=== PATIENT | female | born 1985 | race American Indian/Alaskan Native ===

== ENCOUNTER 2017-04-18 03:00 | Emergency (ER) | payer MEDICAID ==
[2017-04-18 04:29] LABS: Basophils % (Auto) 0.3 % (0.0-1.8); Hematocrit 36.8 % (30.3-42.9); Hemoglobin 11.5 gm/dl (10.1-14.3); Mean Corpuscular HGB Conc 31 % (30-34); Mean Corpuscular Hemoglobin 28 pg (28-32); Mean Corpuscular Volume 89 fl (79-97); Platelet Count 230 K/mm3 (140-440); Red Blood Count 4.11 M/mm3 (3.65-5.03); Red Cell Distribution Width 15.9 % (13.2-15.2); White Blood Count 13.2 K/mm3 (4.5-11.0)
[2017-04-18 04:36] LABS: Alanine Aminotransferase 26 units/L (7-56); Albumin 3.4 g/dL (3.9-5); Alkaline Phosphatase 85 units/L (35-129); Anion Gap 19 mmol/L; Blood Urea Nitrogen 4 mg/dL (7-17); Calcium 9.1 mg/dL (8.4-10.2); Carbon Dioxide 20 mmol/L (22-30); Chloride 100.9 mmol/L (98-107); Glucose 119 mg/dL (65-100); Lipase 24 units/L (13-60); Potassium 3.3 mmol/L (3.6-5.0); Sodium 137 mmol/L (137-145); Total Protein 6.9 g/dL (6.3-8.2)
[2017-04-18 05:12] LABS: Bilirubin,Urine NEG (Negative); Blood,Urine NEG (Negative); Ketones,Urine NEG (Negative); Leukocyte Esterase,Urine NEG (Negative); Mucus,Urine FEW /HPF; Nitrite,Urine NEG (Negative); Protein,Urine <15 mg/dL mg/dL (Negative); Urobilinogen,Urine < 2.0 mg/dL (<2.0)
--- NOTE | 2017-04-18 06:24 | Ultrasound Report ---
FINAL REPORT EXAM: US OB \T\gt; = 14 WEEKS FETUS, US OB TRANSVAGINAL HISTORY: 19 WEEKS PREG / ABD CRAMPS. TECHNIQUE: Directed transabdominal and transvaginal ultrasound examination of the pelvis was performed. No prior studies are available for comparison. FINDINGS: The patient reports her last menstrual period 12/05/2016, corresponding to current gestational age of 19 weeks, 1 day. There is a single intrauterine gestation, with current transverse position. The placenta is located anteriorly, unremarkable. The cervix measures 3.6 cm in length, within normal limits. The BPD measures 4.36 cm, corresponding to gestational age of 19 weeks, 1 day. The HC measures 16.40 cm, corresponding to 19 weeks, 1 day. The abdominal circumference measures 14.35 cm, corresponding to 19 weeks, 5 days. The femur length measures 3.24 cm, corresponding to 20 weeks, 1 day. There is an average ultrasound age of 19 weeks 4 days. cardiac activity is identified, with a heart rate of 143 beats per minute. There is limited visualization of the four-chamber heart, spine, abdominal cord insertion, and kidneys due to lie. The remainder of the anatomic survey is grossly within normal limits. IMPRESSION: Single live intrauterine gestation, with average ultrasound age of 19 weeks, 4 days.
--- NOTE | 2017-04-18 09:49 | Emergency Department Report ---
ED HPI - General Chief complaint: Abdominal Pain Stated complaint: CRAMPING 19 WEEKS Time Seen by Provider: 04/18/17 09:20 Source: patient Mode of arrival: Ambulatory Limitations: No Limitations - History of Present Illness Initial comments: 32-year-old female here with complaint of left-sided abdominal cramping. Patient noticed on Friday some left-sided abdominal cramping that radiated to her back. This is been intermittent for the last 2 days. No fevers chills nausea vomiting no other symptoms. Denies cramps constipation diarrhea. Patient is tolerating oral intake. She's had no vaginal bleeding or vaginal discharge MD Complaint: abdominal pain -: Sudden Location: pelvis Radiation: LLQ Severity: moderate Quality: sharp Consistency: intermittent (last approximate 5 minutes) Associated symptoms: abdominal pain. denies: nausea/vomiting, vaginal bleeding , vaginal discharge, headache, vision changes, malaise, dysparuenia, rash, seizure - Related Data Allergies Allergy/AdvReac Type Severity Reaction Status Date / Time No Known Allergies Allergy Verified 04/18/17 03:29 ED Review of Systems ROS: Stated complaint: CRAMPING 19 WEEKS Other details as noted in HPI Comment: All other systems reviewed and negative Constitutional: denies: chills, fever Eyes: denies: eye pain, eye discharge, vision change ENT: denies: ear pain, throat pain Respiratory: denies: cough, shortness of breath, wheezing Cardiovascular: denies: chest pain, palpitations Endocrine: no symptoms reported Gastrointestinal: abdominal pain. denies: nausea, diarrhea Genitourinary: denies: urgency, dysuria, frequency, hematuria, discharge, abnormal menses, dyspareunia Musculoskeletal: denies: back pain, joint swelling, arthralgia Skin: denies: rash, lesions Neurological: denies: headache, weakness, paresthesias Psychiatric: denies: anxiety, depression Hematological/Lymphatic: denies: easy bleeding, easy bruising ED Past Medical Hx - Past Medical History Previous Medical History?: No - Surgical History Past Surgical History?: Yes Additional Surgical History: KNEE - Family History Family history: no significant - Social History Smoking Status: Never Smoker Substance Use Type: None ED Physical Exam - General Limitations: No Limitations General appearance: alert, in no apparent distress - Head Head exam: Present: atraumatic, normocephalic - Eye Eye exam: Present: normal appearance. Absent: scleral icterus, conjunctival injection - ENT ENT exam: Present: mucous membranes moist - Neck Neck exam: Present: normal inspection. Absent: meningismus, lymphadenopathy - Respiratory Respiratory exam: Present: normal lung sounds bilaterally. Absent: respiratory distress, wheezes, rales - Cardiovascular Cardiovascular Exam: Present: regular rate, normal rhythm, normal heart sounds. Absent: systolic murmur, diastolic murmur, rubs, gallop - GI/Abdominal GI/Abdominal exam: Present: soft, tenderness (mild left lower quadrant tenderness), normal bowel sounds. Absent: distended, guarding, rebound - Extremities Exam Extremities exam: Present: normal inspection - Back Exam Back exam: Present: normal inspection - Neurological Exam Neurological exam: Present: alert, oriented X3 - Psychiatric Psychiatric exam: Present: normal affect, normal mood - Skin Skin exam: Present: warm, dry, intact, normal color. Absent: rash ED Course Vital Signs 04/18/17 04/18/17 04/18/17 03:29 10:30 11:00 Temperature 98.9 F Pulse Rate 94 H 82 96 H Respiratory 20 18 Rate Blood Pressure 130/80 Blood Pressure 112/64 96/61 [Right] O2 Sat by Pulse 100 Oximetry 04/18/17 12:20 Temperature Pulse Rate 103 H Respiratory 18 Rate Blood Pressure Blood Pressure 113/71 [Right] O2 Sat by Pulse Oximetry ED Medical Decision Making - Lab Data Result diagrams: 04/18/17 03:45 04/18/17 03:45 Laboratory Results - last 24 hr 04/18/17 04/18/17 04/18/17 03:45 03:45 03:45 WBC 13.2 H RBC 4.11 Hgb 11.5 Hct 36.8 MCV 89 MCH 28 MCHC 31 RDW 15.9 H Plt Count 230 Lymph % (Auto) 20.7 Armstrong % (Auto) 4.9 Eos % (Auto) 1.0 Baso % (Auto) 0.3 Lymph # 2.7 Armstrong # 0.6 Eos # 0.1 Baso # 0.0 Seg Neutrophils % 73.1 H Seg Neutrophils # 9.7 H Sodium 137 Potassium 3.3 L Chloride 100.9 Carbon Dioxide 20 L Anion Gap 19 BUN 4 L Creatinine 0.5 L Estimated GFR > 60 BUN/Creatinine Ratio 8.00 Glucose 119 H Calcium 9.1 Total Bilirubin 0.20 AST 17 ALT 26 Alkaline Phosphatase 85 Total Protein 6.9 Albumin 3.4 L Albumin/Globulin Ratio 1.0 Lipase 24 HCG, Quant 5934 H Urine Color Urine Turbidity Urine pH Ur Specific [place] Urine Protein Urine Glucose (UA) Urine Ketones Urine Blood Urine Nitrite Urine Bilirubin Urine Urobilinogen Ur Leukocyte Esterase Urine WBC (Auto) Urine RBC (Auto) U Epithel Cells (Auto) Urine Mucus 04/18/17 04:13 WBC RBC Hgb Hct MCV MCH MCHC RDW Plt Count Lymph % (Auto) Armstrong % (Auto) Eos % (Auto) Baso % (Auto) Lymph # Armstrong # Eos # Baso # Seg Neutrophils % Seg Neutrophils # Sodium Potassium Chloride Carbon Dioxide Anion Gap BUN Creatinine Estimated GFR BUN/Creatinine Ratio Glucose Calcium Total Bilirubin AST ALT Alkaline Phosphatase Total Protein Albumin Albumin/Globulin Ratio Lipase HCG, Quant Urine Color Yellow Urine Turbidity Clear Urine pH 5.0 Ur Specific [place] 1.025 Urine Protein <15 mg/dl Urine Glucose (UA) Neg Urine Ketones Neg Urine Blood Neg Urine Nitrite Neg Urine Bilirubin Neg Urine Urobilinogen < 2.0 Ur Leukocyte Esterase Neg Urine WBC (Auto) 1.0 Urine RBC (Auto) 3.0 U Epithel Cells (Auto) 2.0 Urine Mucus Few - Medical Decision Making 32-year-old here with complaint of left lower quadrant tenderness. Patient has intermittent pain lasting 5 minutes that radiates to her back. Initial workup plan labs UA and ultrasound to assess fetus. Patient states she is detecting movement. Initial labs shows elevated white blood count of 13 but otherwise labs are unremarkable. No evidence of UTI. Plan ultrasound and discuss with senior design engineering specialist/OB on-call. Ultrasound is unremarkable, live gestation at 19 weeks noted. Discussed case with OB on-call, Dr. Molina, comfortable with plan to discharge patient home. Discussed at length the patient and she is comfortable following up with them on Friday. Portions of this chart were dictated with dictation software. There may be dictation errors contained within this note. Critical care attestation.: If time is entered above; I have spent that time in minutes in the direct care of this critically ill patient, excluding procedure time. ED Disposition Clinical Impression: Abdominal pain affecting Disposition: DC- TO HOME OR SELFCARE Is pt being admited?: No Condition: Stable Instructions: Abdominal Pain (ED) Additional Instructions: Follow-up with your belt maker next week. You may take Tylenol for pain Referrals: PRIMARY CARE, [Primary Care Provider] - 3-5 Days
[2017-04-18 12:22] VITALS: BP 113/71
== END 2017-04-18 13:40 | disposition home or self-care (01) ==
LOC: ED 03:00
DX: O26.892 Other specified pregnancy related conditions, second trimester (principal); R10.32 Left lower quadrant pain; Z3A.19 19 weeks gestation of pregnancy
CPT/HCPCS: 36415; 76805; 76817; 80053; 81001; 83690; 84702; 85025

== ENCOUNTER 2017-09-06 01:50 | Outpatient (CLI) | payer MEDICAID ==
[2017-09-06 02:18] VITALS: BP 105/60
--- NOTE | 2017-09-06 03:14 | Ultrasound Report ---
FINAL REPORT PROCEDURE: US OB BPP WO NON-STRESS TECHNIQUE: Real-time limited sonographic examination was performed for evaluation of size, position, heartbeat, fluid volume for each fetus with image documentation (1 or more fetuses). CPT 38044 HISTORY: wellbeing COMPARISON: No prior studies are available for comparison. FINDINGS: Biophysical profile: breathing movements: 2. movements: 2. posterior and tone: 2. Qualitative amniotic fluid volume: 2. Total score: 8/8. heart rate 168 beats per minute.. IMPRESSION: Normal biophysical profile.
== END 2017-09-06 03:06 | disposition home or self-care (01) ==
LOC: TRG 01:50
PROVIDERS: ATTEND Obstetrics & Gynecology Gynecology
DX: O47.1 False labor at or after 37 completed weeks of gestation (principal); Z3A.39 39 weeks gestation of pregnancy
CPT/HCPCS: 59025; 76819

== ENCOUNTER 2017-09-16 01:54 | Inpatient (IN) | payer MEDICAID ==
[2017-09-16] MEDS ORDERED: VISTARIL PO ONE (02:51)
[2017-09-16] MEDS ORDERED: PITOCin/NS 20 UNIT/1000ML DRIP 20,000 MILLIUNITS/1,000 ML BAG IV ONE (03:03)
--- NOTE | 2017-09-16 03:25 | Procedure Note ---
OB Delivery Note - Delivery Date of Delivery: 09/16/17 Surgeon: KASIE STAUFFER Estimated blood loss: 200cc - Vaginal Delivery presentation: vertex Delivery position: OA Intrapartum events: precipitous labor- <3hr Delivery monitor: external FHT, external uterine Route of delivery: Delivery placenta: spontaneous Delivery cord: 3 umbilical vessels Episiotomy: none Delivery laceration: none Anesthesia: none Delivery comments: Precipitate delivery of female over intact perineum - Infant A at 1 minute: 8 at 5 minutes: 9 Infant Gender: Female (time of is 3 AM, infant weight 7 pounds 14 or 3558 g)
[2017-09-16] MEDS ORDERED: LANSINOH TP PRN (03:28)
[2017-09-16] MEDS ORDERED: ZOFRAN IV PRN (03:28)
[2017-09-16] MEDS ORDERED: DULCOLAX PR PRN (03:28)
[2017-09-16] MEDS ORDERED: MILK OF MAGNESIA PO PRN (03:28)
[2017-09-16] MEDS ORDERED: BENADRYL PO PRN (03:28)
[2017-09-16] MEDS ORDERED: PHENERGAN PO PRN (03:28)
[2017-09-16] MEDS ORDERED: TUCKS PAD TP PRN (03:28)
[2017-09-16] MEDS ORDERED: PHENERGAN PR PRN (03:28)
[2017-09-16] MEDS ORDERED: TYLENOL PO PRN (03:28)
--- NOTE | 2017-09-16 03:28 | History and Physical Report ---
History of Present Illness Date of examination: 09/16/17 Date of admission: 09/16/17 02:56 Chief complaint: Precipitous delivery History of present illness: 32-year-old @ 40+5 weeks in active labor, she is a [facility] patient. 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 denies: smoking, alcohol abuse, prescription drug abuse, IV drug use - Obstetrical History Expected Date of Delivery: 09/11/17 Actual Gestation: 40 Week(s) 5 Day(s) : 4 Para: 1 Medications and Allergies Allergies Allergy/AdvReac Type Severity Reaction Status Date / Time No Known Allergies Allergy Verified 04/18/17 03:29 Home Medications Medication Instructions Recorded Confirmed Last Taken Type Pnv No.95/Ferrous Fum/Folic AC 1 tab PO QDAY 09/16/17 09/16/17 Unknown History [ Vitamins Tablet] Review of Systems Cardiovascular: no chest pain, no orthopnea, no palpitations, no syncope Respiratory: no cough, no cough with sputum, no shortness of breath, no dyspnea on exertion - Vital Signs Vital signs: Vital Signs Temp Pulse Resp BP Pulse Ox 98.2 F 96 H 22 132/76 98 09/16/17 02:00 09/16/17 02:00 09/16/17 02:00 09/16/17 02:00 09/16/17 02:00 Temp Pulse Resp BP Pulse Ox 98.2 F 100 H 22 117/66 100 09/16/17 02:00 09/16/17 03:23 09/16/17 02:00 09/16/17 03:23 09/16/17 03:00 - Physical Exam Abdomen: Positive: normal appearance, soft. Negative: distention, tenderness, guarding, rigidity Genitourinary (Female): Positive: normal external genitalia Extremities: Positive: normal Results All other labs normal. Assessment and Plan PPD#0: s/p -Doing well P: -Routine PP care -Anticipate D/C in 24-48 hrs - Patient Problems (1) Precipitate labour, delivered Current Visit: Yes Status: Acute
[2017-09-16] MEDS ORDERED: SODIUM CHLORIDE FLUSH SYRINGE 10 ML IV PRN (04:00)
[2017-09-16] MEDS ORDERED: PITOCin/NS 20 UNIT/1000ML DRIP 20 UNITS/1,000 ML BAG IV SCH (04:00)
[2017-09-16 04:08] LABS: Hemoglobin 11.5 gm/dl (10.1-14.3)
[2017-09-16] MEDS: MOTRIN PO SCH ×3 (05:56→19:56)
[2017-09-16] MEDS: SENOKOT S PO SCH (05:56)
[2017-09-16] MEDS: FEOSOL PO SCH ×2 (12:00→21:11)
[2017-09-16] MEDS: NORCO 5/325 PO PRN (12:00)
[2017-09-16] MEDS: PRENATAL VITAMIN PO SCH (12:00)
[2017-09-16] MEDS: COLACE PO SCH ×2 (12:00→21:11)
[2017-09-16 15:11] LABS: Hemoglobin 10.9 gm/dl (10.1-14.3)
[2017-09-17] MEDS: SENOKOT S PO SCH ×2 (00:20→22:40)
[2017-09-17] MEDS: MOTRIN PO SCH ×2 (00:24→12:15)
--- NOTE | 2017-09-17 07:29 | Progress Note ---
Assessment and Plan - Patient Problems (1) (normal spontaneous vaginal delivery) Onset Date: 09/17/17 Current Visit: Yes Status: Resolved Plan to address problem: A: S/P - PPD #1 Doing well Asymptomatic anemia - stable P: May go home tomorrow Subjective - Subjective Date of service: 09/17/17 Principal diagnosis: s/p - PPD #1 Interval history: Pt is feeling well without complaints. Bleeding improved. Patient reports: appetite normal, voiding normally, pain well controlled, flatus , ambulating normally [place]: doing well, nursing well, bottle feeding Objective - Vital Signs Latest vital signs: Vital Signs Temp Pulse Resp BP Pulse Ox 09/16/17 23:15 98.7 F 87 18 98/55 95 09/16/17 12:00 99.4 F 91 H 16 110/70 09/16/17 07:54 98.5 F 98 H 16 102/61 Intake and Output 09/16/17 09/17/17 09/17/17 22:59 06:59 14:59 Intake Total 120 720 Balance 120 720 Intake: Oral 120 360 Intake, Free Water 360 Other: Total, Intake Amount 120 360 # Voids Void 1 1 - Exam Breasts: Present: deferred Cardiovascular: Present: Regular rate Lungs: Present: Clear to auscultation Abdomen: Present: normal appearance Uterus: Present: normal, firm, fundal height below umbilicus Extremities: Present: normal - Labs Labs: Laboratory Tests 09/16/17 09/16/17 09/16/17 03:10 03:10 14:47 Hgb 11.5 10.9 Hct 36.0 34.0 Blood Type O POSITIVE Antibody Screen Negative
--- NOTE | 2017-09-17 08:45 | Discharge Summary ---
Providers - Providers Date of Admission: 09/16/17 02:56 Date of discharge: 09/18/17 Attending physician: KASIE STAUFFER Primary care physician: KASIE STAUFFER Hospitalization Reason for admission: active labor, IUP at term Delivery: Episiotomy: none Laceration: none Other procedures: none complications: none Discharge diagnosis: IUP at term delivered [place] baby: female Hospital course: Unremarkable. Condition at discharge: Good Disposition: DC-01 TO HOME OR SELFCARE - Discharge Diagnoses (1) (normal spontaneous vaginal delivery) Status: Resolved Plan - Discharge Medications Prescriptions: HYDROcodone/APAP 5-325 [[place] 5/325] 1 each PO Q6HR PRN #30 tablet PRN Reason: Pain Ibuprofen [Motrin 600 MG tab] 600 mg PO Q8H PRN #30 tablet PRN Reason: Pain Multivitamin with Iron [Multivitamins with Iron] 1 each PO DAILY #30 tablet - Provider Discharge Summary Activity: routine, no sex for 6 weeks, no heavy lifting 4 weeks, no strenuous exercise Diet: routine Instructions: routine Additional instructions: [] Smoking cessation referral if applicable(refer to patient education folder for contact #) [] Refer to [facility] Booklet Call your doctor immediately for: * Fever > 100.5 * Heavy vaginal bleeding ( >1 pad per hour) * Severe persistent headache * Shortness of breath * Reddened, hot, painful area to leg or breast * Drainage or odor from incision. * Keep incision clean and dry at all times and follow doctor's instructions regarding bathing/showering - Follow up plan Follow up: KASIE STAUFFER MD [Primary Care Provider] - 14 Days
[2017-09-17] MEDS: COLACE PO SCH (12:15)
[2017-09-17] MEDS: PRENATAL VITAMIN PO SCH (12:15)
[2017-09-17] MEDS: FEOSOL PO SCH ×2 (12:15→22:39)
[2017-09-17] MEDS: NORCO 5/325 PO PRN (22:39)
[2017-09-18] MEDS: MOTRIN PO SCH ×2 (00:16→05:30)
[2017-09-18] MEDS: COLACE PO SCH ×2 (00:17→10:02)
[2017-09-18 09:55] VITALS: BP 108/61
[2017-09-18] MEDS: PRENATAL VITAMIN PO SCH (10:02)
[2017-09-18] MEDS: FEOSOL PO SCH (10:02)
== END 2017-09-18 12:53 | disposition home or self-care (01) | DRG 775 ==
LOC: TRG 01:54 → LD 02:56 → OB 05:08
PROVIDERS: ADMIT Obstetrics & Gynecology Gynecology; ATTEND Obstetrics & Gynecology Gynecology
PROC: 10E0XZZ Delivery of Products of Conception, External Approach (ICD-10-PCS; principal; 2017-09-16)
DX: O62.3 Precipitate labor (principal); Z3A.40 40 weeks gestation of pregnancy; Z37.0 Single live birth; O90.81 Anemia of the puerperium; D64.9 Anemia, unspecified
CPT/HCPCS: 36415; 85014; 85018; 86850; 86900; 86901; 99211; A6250; G0463; J2590

== ENCOUNTER 2018-05-05 06:04 | Day surgery (SDC) | payer MEDICAID ==
[2018-05-05] MEDS ORDERED: SUBLIMAZE ONE ×2 (07:18→08:49)
[2018-05-05] MEDS ORDERED: XYLOCAINE MPF 2% ONE (07:18)
[2018-05-05] MEDS ORDERED: DIPRIVAN 10 MG/ML IV ONE (07:18)
--- NOTE | 2018-05-05 07:19 | Anesthesia Day of Surgery ---
Anesthesia Day of Surgery - Day of Surgery Patient Examined: Yes Patient H&P Reviewed: Yes Patient is NPO: Yes
--- NOTE | 2018-05-05 07:19 | Anesthesia Consultation ---
Anesthesia Consult and Med Hx Date of service: 05/05/18 - Airway Anesthetic Teeth Evaluation: Good ROM Head & Neck: Adequate Mental/Hyoid Distance: Adequate Mallampati Class: Class II Intubation Access Assessment: Good - Pulmonary Exam CTA: Yes - Cardiac Exam Cardiac Exam: No Murmur - Pre-Operative Health Status ASA Pre-Surgery Classification: ASA1 Proposed Anesthetic Plan: General - Pulmonary Hx Asthma: No COPD: No Hx Pneumonia: No - Cardiovascular System Hx Hypertension: No - Central Nervous System Hx Seizures: No Hx Psychiatric Problems: No - Endocrine Hx Renal Disease: No Hx End Stage Renal Disease: No Hx Hypothyroidism: No Hx Hyperthyroidism: No - Hematic Hx Anemia: Yes (Past hx) Hx Sickle Cell Disease: No - Other Systems Hx Alcohol Use: Yes (Occas) Hx Cancer: No
[2018-05-05] MEDS ORDERED: MARCAINE 0.5% INFILTRATI ONE ×2 (07:23→08:52)
[2018-05-05] MEDS ORDERED: PEPCID PO NR (08:00)
[2018-05-05] MEDS ORDERED: VERSED IV NR (08:00)
[2018-05-05] MEDS ORDERED: LACTATED RINGERS 1,000 ML IV SCH (08:00)
[2018-05-05 08:05] LABS: Hematocrit 38.7 % (30.3-42.9); Hemoglobin 12.9 gm/dl (10.1-14.3)
[2018-05-05] MEDS ORDERED: ANCEF/STERILE WATER 2 GM/20 ML 2 GM/20 ML SYRINGE IV ONE (08:05)
--- NOTE | 2018-05-05 08:05 | Short Stay Summary ---
Short Stay Documentation Date of service: 05/05/18 Narrative H&P: Pt is a 33yo BF LMP 04/27/18 presents for permanent sterilization. - History Principal diagnosis: Desires permanent sterilization H&P: obtained from office Past Medical History: No medical history Past Surgical History: Other (left knee surgery) Social history: no significant social history, single - Allergies and Medications Current Medications: Allergies No Known Allergies Allergy (Verified 05/01/18 12:43) Home Medications Medication Instructions Recorded Confirmed Last Taken Type No Known Home Medications [No 05/01/18 05/01/18 Unknown History Reported Home Medications] Active Medications Famotidine (Pepcid) 20 mg PO PREOP NR Stop: 05/05/18 20:00 Last Admin: 05/05/18 07:50 Dose: 20 mg Lactated Ringer's (Lactated Ringers) 1,000 mls @ 100 mls/hr IV DIRECT KELLY Last Admin: 05/05/18 07:50 Dose: 100 mls/hr Cefazolin Sodium (Ancef/Sterile Water 2 Gm/20 Ml) 2 gm in 20 mls @ 80 mls/hr IV PREOP NR; Protocol Midazolam HCl (Versed) 2 mg IV PREOP NR Stop: 05/05/18 23:59 Last Admin: 05/05/18 07:50 Dose: 2 mg - Physical exam General appearance: no acute distress Integumentary: no rash HEENT: Atraumatic Lungs: Clear to auscultation Breasts: deferred Heart: Regular rate Gastrointestinal: normal Female Genitourinary: deferred Rectal Exam: deferred Extremities: no ischemia, No edema Neurological: Normal gait, Normal speech - Brief post op/procedure progress note Date of procedure: 05/05/18 Pre-op diagnosis: Desires permanent sterilization Post-op diagnosis: same Procedure: Desires permanent sterilization Anesthesia: GETA Findings: Normal uterus. Normal tubes and ovaries bilaterally. Surgeon: ALLAN BAR Estimated blood loss: minimal Pathology: none Condition: stable - Hospital course Hospital course: Unremarkable. - Disposition Condition at discharge: Good Disposition: DC-01 TO HOME OR SELFCARE - Discharge Diagnoses (1) Encounter for sterilization Status: Resolved Short Stay Discharge Plan Activity: no restrictions Diet: regular Wound: open to air, keep clean and dry Follow up with: RAVI MORALES MD [Primary Care Provider] - 7 Days ALLAN BAR MD [Staff Physician] - 14 Days Prescriptions: HYDROcodone/APAP 5-325 [[place] 5/325] 1 each PO Q6HR PRN #20 tablet PRN Reason: Pain
[2018-05-05] MEDS ORDERED: DECADRON ONE (08:14)
[2018-05-05] MEDS ORDERED: TORADOL ONE (08:30)
[2018-05-05] MEDS ORDERED: ROBINUL ONE (08:34)
[2018-05-05] MEDS ORDERED: BLOXIVERZ ONE (08:34)
[2018-05-05] MEDS ORDERED: NACL 0.9% IR ONE (08:53)
[2018-05-05] MEDS ORDERED: ANCEF/STERILE WATER 2 GM/20 ML 2 GM/20 ML SYRINGE IV NR (09:00)
--- NOTE | 2018-05-05 09:07 | Operative Report ---
Operative Report Operative Report: PREOPERATIVE DIAGNOSIS: Desires pertinent sterilization POSTOPERATIVE DIAGNOSIS: Same OPERATIVE PROCEDURE: Laparoscopic bilateral tubal ligation. SURGEON: Desean Molina MD ANESTHESIA: Gen. endotracheal intubation ANESTHESIOLOGIST: Dr. Sandy ESTIMATED BLOOD LOSS: Minimal FINDINGS: Normal uterus. Normal tubes and ovaries bilaterally. COMPLICATIONS: None COUNTS: Correct x3. PROCEDURE: After the patient was correctly identified and after general anesthesia was administered, the patient was prepped and draped in usual sterile fashion and placed in dorsal lithotomy position. First, the bladder was emptied using a straight catheter. Next, a speculum was placed in the vaginal vault and the anterior lip of the cervix was grasped using a single- tooth tenaculum. The uterine manipulator was then placed and the tenaculum and speculum were removed. Attention was then turned to the abdomen where first a periumbilical incision was made using a skin knife, and the Optiview trocar was inserted under direct visualization. After an adequate amount of abdominal insufflation, visualization of the pelvic organs found the uterus to be normal, and the tubes and ovaries to be normal bilaterally. Next, the left fallopian tube was grasped using the Kleppingers, and after identifying the fimbriated end of the left tube, this tube was cauterized in 3 continuous [address] along the proximal portion of the left tube. The same procedure was performed on the right fallopian tube after first identifying the fimbriated end of the right tube. This tube was also cauterized in 3 continuous places along the proximal portion of the right tube. At this point, the procedure was then considered complete. All instruments were removed from the abdomen. The abdomen was deflated and the periumbilical incision was closed using 0 Vicryl suture in a [id number] configuration on the fascia, followed by 4-0 Monocryl suture in sub-cuticular fashion on the skin. The incision was also infiltrated using 0.5% Marcaine solution. The uterine manipulator was removed. The patient tolerated the procedure well and was transferred to recovery room stable condition.
--- NOTE | 2018-05-05 09:19 | Post Anesthesia Evaluation ---
- Post Anesthesia Evaluation Patient Participated: Yes Airway Patent: Yes Stable Respiratory Function: Yes Nausea/Vomiting: No Temp > 96.8F: Yes Pain Manageable: Yes Adequeate Hydration: Yes Anesthesia Complications: No
[2018-05-05 09:57] VITALS: BP 130/74
[2018-05-05] MEDS ORDERED: PERCOCET 5/325 PO PRN (10:00)
== END 2018-05-05 10:45 | disposition home or self-care (01) ==
LOC: OR 06:04
PROVIDERS: ATTEND Obstetrics & Gynecology
DX: Z30.2 Encounter for sterilization (principal); Z83.3 Family history of diabetes mellitus; Z82.49 Family history of ischemic heart disease and other diseases of the circulatory system; Z86.2 Personal history of diseases of the blood and blood-forming organs and certain disorders involving the immune mechanism; Z72.89 Other problems related to lifestyle
CPT/HCPCS: 36415; 58670; 81025; 85014; 85018; J0690; J1100; J1885; J2250; J2704; J2710; J3010; J7120